=== PATIENT | female | born 1975 | race Caucasian/White ===

== ENCOUNTER 2022-04-05 21:25 | Inpatient (IN) | payer BC ==
[~2022-04-05] VITALS: Ht 162.6 cm; Wt 59.9 kg
--- NOTE | 2022-04-05 21:58 | NUR ---
PT SWABBED FOR COVID, SAMPLE SENT TO LAB
--- NOTE | 2022-04-05 22:54 | NUR ---
46 YR OLD FMALE RECENTLY DIAGNOSED WITH CANCER OF THE MARI, PT NOTED TO HAVE LARGE TENNIS BALL NODULE ON LEFT MID BACK WITH TENDERNESS TO TOUCH. PT STATED SHE HAS BACK PAIN 10/10 WITH NAUSEA AND VOMITING FOR ONE DAY. PT CONCERNED ABOUT PNUEMONIA. PENDING MD EVALUATION
[2022-04-05 23:16] VITALS: BP_SYST 119
[2022-04-06] MEDS ORDERED: MORPHINE 4 MG INJ. 4 MG/ML VIAL IVP ONE (00:15)
[2022-04-06 00:36] LABS: WHITE BLOOD COUNT (AUTO) 2.4 K/uL (4.8-10.8)
[2022-04-06 00:41] LABS: ANION GAP 9 (5-15); CHLORIDE 100 mmol/L (98-107); CREATININE 0.84 mg/dL (0.55-1.30); GLUCOSE 180 mg/dL (70-99); POTASSIUM 3.7 mmol/L (3.5-5.1); SODIUM SERUM 135 mmol/L (136-145); UREA NITROGEN, BLOOD 7 mg/dL (8-21)
[2022-04-06 00:48] LABS: HEMATOCRIT 26.6 % (36-48); HEMOGLOBIN 9.1 g/dL (12.0-16.0); MEAN CORPUSCULAR HEMOGLOBIN 30 pg (27-31); MEAN CORPUSCULAR HGB CONC 34 % (32-36); MEAN CORPUSCULAR VOLUME 87 fL (79.0-98.0); PLATELET COUNT (AUTO) 157 K/uL (130-430); RED BLOOD CELL COUNT(AUTO) 3.07 MIL/uL (4.2-6.2); RED CELL DISTRIBUTION WIDTH 18.5 % (9.0-15.0)
[2022-04-06 00:49] LABS: ALANINE AMINOTRANSFERASE 7 U/L (12-78); ALBUMIN 2.2 g/dL (3.4-4.8); ASPARTATE AMINOTRANSFERASE 21 U/L (10-37); TOTAL BILIRUBIN 0.8 mg/dL (0.0-1.0)
[2022-04-06 00:51] LABS: GFR AFRICAN AMERICAN 93 mL/min (>90)
[2022-04-06] MEDS ORDERED: IBUP-1971 PO (01:50)
--- NOTE | 2022-04-06 02:41 | NUR ---
Admit bed requested Patient will be admitted to care of . Admitted to unit. Diagnosis Inpatient (Yes or No) Observation (Yes or No) Orientation concerns or request close to nursing station (Yes or No) Covid Status On vent or bipap Isolation requirements Needs a sitter From Home (Yes or if No enter name of facility) Requires Dialysis (Yes or No) Med Rec Completed (Yes of No)
[2022-04-06] MEDS ORDERED: ACETAMINOPHEN 500 MG TABLET PO ONE (02:45)
[2022-04-06] MEDS ORDERED: IPRATROPIUM/ALBUTEROL SULFATE 3 ML AMPUL.NEB (DUONEB) INH ONE (02:45)
[2022-04-06] MEDS ORDERED: ONDANSETRON HCL 4 MG/2 ML VIAL IVP ONE (02:45)
[2022-04-06 02:59] LABS: ATYPICAL LYMPHOCYTES % 0 % (0-0); BAND % (MANUAL) 1 % (0-6); BASOPHILS % (MANUAL) 0 % (0-2); EOSINOPHILS % (MANUAL) 0 % (0-7); LYMPHOCYTES % (MANUAL) 62 % (20-46); MONOCYTES % (MANUAL) 14 % (0-11); MYELOCYTES % 1 % (0-0)
--- NOTE | 2022-04-06 04:18 | NUR ---
Note undone in EDM - 04/06/22 at 0420 by [id number] Patient given written and verbal discharge instructions and verbalizes understanding. ER MD discussed with patient the results and treatment provided. Patient in stable condition. ID arm band removed. IV catheter removed intact and dressing applied, no active bleeding. Rx of [] given. Patient educated on pain management and to follow up with PMD. Pain Scale []. Opportunity for questions provided and answered. Medication side effect fact sheet provided. Patient will be admitted to care of . Admitted to unit. Will go to room . Belongings list completed. Complete and up to date summary report printed. SBAR report to be given at bedside with opportunity for questions.
[2022-04-06 04:41] VITALS: BP_SYST 115
--- NOTE | 2022-04-06 05:20 | NUR ---
Consultation Paged Reason for Consultation: left pleural effusion Was consult called: Y Person who was notified: Dinora Consulting Physician: Sam Prasad Ordering Physician: Phan Linares
--- NOTE | 2022-04-06 06:23 | NUR ---
0430 Pt. to room from ER, aaox4, no acute distress. Oriented to room and made comfortable, call light in reach. Pt. to call her son to bring in her home meds and dentures. Assessment questions answered. 0600 Pt. needs met this shift, vss, call light in reach, resting quietly.
[2022-04-06 08:00] VITALS: BP_SYST 121
[2022-04-06 12:00] VITALS: BP_SYST 108
[2022-04-06] MEDS ORDERED: METF-518 PO (13:41)
[2022-04-06] MEDS ORDERED: PROC10TA13 PO (13:41)
[2022-04-06] MEDS ORDERED: GLIP10TA11 PO (13:41)
[2022-04-06] MEDS ORDERED: INSU100I26 SQ (13:41)
[2022-04-06] MEDS ORDERED: D5W 1,000 ML IV PRN (14:00)
[2022-04-06] MEDS ORDERED: INSULIN LISPRO SLIDING SCALE 100 UNITS/ML VIAL (humaLOG) SUBCUT PRN (14:00)
[2022-04-06] MEDS ORDERED: DEXTROSE 50% JECT 50 ML DISP.SYRIN IVP PRN (14:00)
[2022-04-06] MEDS ORDERED: GLUCOSE (DEXTROSE) ORAL GEL -Adults PO PRN (14:00)
--- NOTE | 2022-04-06 17:37 | NUR ---
Miss Wright is being DC to home at this time. She was offered a thoracentesis by the Waiter/[employer]ress [employer]. she declined stating the that procedure was too painful. She also informed her admitting physician as well as the message clerk that she has seen a message clerk as an outpatient recently she had a "scan" that was ordered by him. She also states that she had a recent PET scan and all of these results will be followed up with her oncologist at an appointment that she has this week. She has been having recurrent pleural effusions over the last seven years, since she has been diagnosed with melanoma. She also states that she has been informed of the possibility that cancer cells could be in the fluid of the pleural effusion. She states that she will be informed of he report from her last thoracentesis at her next oncology appointment. She stated that the pleural effusion that led to her ER visit and caused her great discomfort has decreased in the amount of discomfort it is causing at this time. She states that she feels comfortable with going home and will follow up with her oncologist this week.
[2022-04-06 17:50] VITALS: BP_SYST 108
--- NOTE | 2022-04-06 18:24 | NUR ---
Miss Wright has been DC to home. IV access has been removed. DC instructions have been reviewed. She expressed her understanding and signed a document to indicated this understanding. She expressed that she understood the need to attend her upcoming oncology appointment. At the time of DC she had no s/s of distress or discomfort. She was compliant with the plan to be DC at this time.
[2022-04-06] MEDS ORDERED: INSULIN GLARGINE 100 UNITS/ML 10 ML VIAL SUBCUT SCH (21:00)
== END 2022-04-06 18:24 | disposition home or self-care (01) | DRG 381 ==
LOC: SED 21:25 → SMU 04-06 02:35
PROVIDERS: ADMIT Family Medicine; ATTEND Family Medicine
DX: C43.9 Malignant melanoma of skin, unspecified (principal); J94.2 Hemothorax; E41 Nutritional marasmus; E43 Unspecified severe protein-calorie malnutrition; J91.0 Malignant pleural effusion; Z20.822 Contact with and (suspected) exposure to COVID-19; E11.9 Type 2 diabetes mellitus without complications; Z85.820 Personal history of malignant melanoma of skin
CPT/HCPCS: 36415; 71045; 80053; 83880; 84484; 85007; 85027; 85379; 96374; 99285; J1815; J2270

== ENCOUNTER 2022-05-05 17:28 | Emergency (ER) | payer BC ==
[~2022-05-05] VITALS: Ht 162.6 cm; Wt 54.4 kg
[~2022-05-05 17:28] MED LIST: GLIP10TA11 PO; IBUP-1971 PO; INSU100I26 SQ; METF-518 PO; PROC10TA13 PO
[2022-05-05 17:43] VITALS: BP_SYST 116
[2022-05-05] MEDS ORDERED: LIDOCAINE/EPI 1% 1:100000 20 ML VIAL INJ ONE ×2 (18:30→19:44)
--- NOTE | 2022-05-05 19:00 | NUR ---
Pt presents to the ER BIB family friend, Pt c/o pain to left middle lumbar 07/12. Pt states pustule filled sac has been there for some time unknown. Pt states pain started this morning. Skin intact, aaox4, Pt currently undergoing Cancer treatment for tumor.
[2022-05-05] MEDS ORDERED: BACITRACIN 1 GM OINT TP ONE (20:49)
--- NOTE | 2022-05-05 21:24 | NUR ---
PATIENT CONSENTED FOR CT SCAN WITH CONTRAST
--- NOTE | 2022-05-05 21:24 | NUR ---
# 20 gauge angiocath placed to LAC. Use of asceptic technique. Opsite placed over site. Blood return noted. Flushed with 10 cc of normal saline. No evidence of infiltration noted. Patient tolerated well.
[2022-05-05 21:31] LABS: MEAN CORPUSCULAR VOLUME 85 fL (79.0-98.0)
[2022-05-05 21:34] LABS: CREATININE 1.13 mg/dL (0.55-1.30); POTASSIUM 3.8 mmol/L (3.5-5.1)
[2022-05-05 21:37] LABS: BASOPHILS % (AUTO) 0.6 % (0.0-2.0); EOSINOPHILS # (AUTO) 0.2 K/uL (0.0-0.4); EOSINOPHILS % (AUTO) 4.1 % (0.0-4.0); HEMATOCRIT 26.8 % (36-48); HEMOGLOBIN 8.8 g/dL (12.0-16.0); LYMPHOCYTES # (AUTO) 1.4 K/uL (1.0-5.5); LYMPHOCYTES % (AUTO) 26.8 % (20.5-51.5); MEAN CORPUSCULAR HEMOGLOBIN 28 pg (27-31); MEAN CORPUSCULAR HGB CONC 33 % (32-36); MONOCYTES # (AUTO) 0.5 K/uL (0.0-1.0); MONOCYTES % (AUTO) 10.3 % (1.7-9.3); NEUTROPHILS % (AUTO) 58.2 % (40.0-70.0); PLATELET COUNT (AUTO) 277 K/uL (130-430); RED BLOOD CELL COUNT(AUTO) 3.16 MIL/uL (4.2-6.2); RED CELL DISTRIBUTION WIDTH 18.4 % (9.0-15.0); WHITE BLOOD COUNT (AUTO) 5.2 K/uL (4.8-10.8)
[2022-05-05 21:45] LABS: ALBUMIN 2.2 g/dL (3.4-4.8); TOTAL BILIRUBIN 0.3 mg/dL (0.0-1.0)
[2022-05-05 21:55] LABS: CALCIUM 8.6 mg/dL (8.4-11.0)
[2022-05-06] MEDS ORDERED: AUG875 PO (02:28)
[2022-05-06 03:23] VITALS: BP_SYST 138
--- NOTE | 2022-05-06 03:23 | NUR ---
Patient given written and verbal discharge instructions and verbalizes understanding. ER MD discussed with patient the results and treatment provided. Patient in stable condition. ID arm band removed. IV catheter removed intact and dressing applied, no active bleeding. Rx of Augmentin given. Patient educated on pain management and to follow up with PMD. Pain Scale 0/10. Opportunity for questions provided and answered.
== END 2022-05-06 03:23 | disposition home or self-care (01) ==
LOC: SED 17:28
DX: J90 Pleural effusion, not elsewhere classified (principal); R22.2 Localized swelling, mass and lump, trunk; E11.9 Type 2 diabetes mellitus without complications; Z79.899 Other long term (current) drug therapy
CPT/HCPCS: 99285; 71260; 10060; 80053; 84702; 85025; 36415; 74160; 76376; Q9967

== ENCOUNTER 2022-11-09 10:51 | Inpatient (IN) | payer BC ==
[~2022-11-09] VITALS: Ht 167.6 cm; Wt 59.0 kg
[2022-11-09 10:51] VITALS: BP_SYST 112
[~2022-11-09 10:51] MED LIST changes: +AUG875 PO; +SULF1TAB48 PO
[2022-11-09] MEDS ORDERED: NS 1000 ML IV.SOLN IV ONE (11:00)
[2022-11-09] MEDS ORDERED: cefTRIAXone 2 GM VIAL ONE (11:10)
[2022-11-09] MEDS ORDERED: MORPHINE 4 MG INJ. 4 MG/ML VIAL IVP ONE (11:15)
[2022-11-09] MEDS ORDERED: LIDOCAINE MPF 1% 50 MG/5 ML AMP INJ ONE (11:30)
[2022-11-09 11:31] LABS: BASOPHILS # (AUTO) 0.2 K/uL (0.0-0.2); EOSINOPHILS # (AUTO) 0.4 K/uL (0.0-0.4); EOSINOPHILS % (AUTO) 2.6 % (0.0-4.0); HEMATOCRIT 28.1 % (36-48); HEMOGLOBIN 8.5 g/dL (12.0-16.0); LYMPHOCYTES # (AUTO) 3.4 K/uL (1.0-5.5); MEAN CORPUSCULAR HEMOGLOBIN 23 pg (27-31); MEAN CORPUSCULAR HGB CONC 30 % (32-36); MEAN CORPUSCULAR VOLUME 77 fL (79.0-98.0); MONOCYTES # (AUTO) 0.6 K/uL (0.0-1.0); MONOCYTES % (AUTO) 3.3 % (1.7-9.3); NEUTROPHILS # (AUTO) 12.4 K/uL (1.8-7.7); NEUTROPHILS % (AUTO) 73.1 % (40.0-70.0); PLATELET COUNT (AUTO) 175 K/uL (130-430); RED BLOOD CELL COUNT(AUTO) 3.65 MIL/uL (4.2-6.2)
[2022-11-09 11:38] LABS: ANION GAP 16 (5-15); CALCIUM 9.7 mg/dL (8.4-11.0); CHLORIDE 109 mmol/L (98-107); GLUCOSE 131 mg/dL (70-99); UREA NITROGEN, BLOOD 17 mg/dL (8-21)
[2022-11-09 11:41] LABS: GFR AFRICAN AMERICAN 56 mL/min (>90)
[2022-11-09 11:43] LABS: BILIRUBIN,URINE NEGATIVE (NEGATIVE); BLOOD, URINE 1+ (NEGATIVE); CLARITY/URINE CLOUDY (CLEAR); COLOR,URINE YELLOW (YELLOW); GLUCOSE,URINE NEGATIVE (NEGATIVE); KETONES,URINE 1+ (NEGATIVE); LEUKOCYTE ESTERASE ,URINE 3+ (NEGATIVE); NITRITE, URINE POSITIVE (NEGATIVE); PROTEIN URINE 1+ (NEGATIVE); UROBILINOGEN,URINE 0.2 (0.2-1.0)
[2022-11-09 11:47] LABS: ACETAMINOPHEN < 1 ug/mL (1-30); ALANINE AMINOTRANSFERASE 15 U/L (12-78); ALCOHOL, BLOOD < 3 mg/dL (<10); ASPARTATE AMINOTRANSFERASE 28 U/L (10-37); TOTAL BILIRUBIN 0.6 mg/dL (0.0-1.0)
[2022-11-09 11:52] LABS: BACTERIA,URINE MODERATE /HPF (None Seen); MUCUS,URINE None Seen /LPF (None Seen); RBC,URINE 0-3 /HPF (0-3); WBC,URINE 20-50 /HPF (0-3)
[2022-11-09 11:54] LABS: BARBITURATE, URINE NEGATIVE (NEG <=200); BENZODIAZEPINE, URINE NEGATIVE (NEG <=150); CANNABINOID, URINE NEGATIVE (NEG <=50); COCAINE, URINE NEGATIVE (NEG <=150); METHAMPHETAMINES SCREEN,URINE NEGATIVE (NEG <=500); OPIATE, URINE POSITIVE (NEG <=100); PHENCYCLIDINE SCREEN,URINE NEGATIVE (NEG <=25); UR TRICYCLIC ANTIDEPRESSANTS NEGATIVE (NEG <=300); URINE AMPHETAMINE NEGATIVE (NEG <=500); URINE METHADONE NEGATIVE (NEG <=200); URINE OXYCODONE SCREEN NEGATIVE (NEG <=100); URINE PROPOXYPHENE SCREEN NEGATIVE (NEG <=300)
[2022-11-09] MEDS ORDERED: SULF1TAB47 PO (12:45)
[2022-11-09] MEDS ORDERED: IBUP-1970 PO (12:45)
[2022-11-09] MEDS ORDERED: [UNRECOGNIZED DRUG - CODE] PO (12:45)
[2022-11-09] MEDS ORDERED: D5/0.45 NS 1,000 ML IV ONE (14:45)
[2022-11-09 17:06] VITALS: BP_SYST 134
[2022-11-09 19:03] VITALS: BP_SYST 135
[2022-11-09] MEDS ORDERED: PROCHLORPERAZINE MALEATE 10 MG TABLET PO PRN (21:15)
[2022-11-09] MEDS ORDERED: D5W 1,000 ML IV PRN (22:15)
[2022-11-09] MEDS ORDERED: GLUCOSE (DEXTROSE) ORAL GEL -Adults PO PRN (22:15)
[2022-11-09] MEDS ORDERED: DEXTROSE 50% JECT 50 ML DISP.SYRIN IVP PRN (22:15)
[2022-11-09] MEDS ORDERED: LORazepam 2 MG/ML VIAL IVP PRN (22:15)
[2022-11-09] MEDS: ALBUTEROL SULFATE 0.083% 2.5 MG/3 ML VIAL.NEB INH SCH (23:22)
[2022-11-09] MEDS: IPRATROPIUM BROM 0.5 MG/2.5 ML VIAL.NEB (ATROVENT) INH SCH (23:22)
[2022-11-10] VITALS (9 sets, daily range): BP systolic 84–141
[2022-11-10] MEDS ORDERED: traZODone HCL 50 MG TABLET (DESYREL) PO PRN (01:00)
[2022-11-10] MEDS: IBUPROFEN 800 MG TABLET PO PRN ×4 (01:01→22:38)
[2022-11-10] MEDS: IPRATROPIUM BROM 0.5 MG/2.5 ML VIAL.NEB (ATROVENT) INH SCH ×6 (03:14→23:23)
[2022-11-10] MEDS: ALBUTEROL SULFATE 0.083% 2.5 MG/3 ML VIAL.NEB INH SCH ×6 (03:14→23:23)
[2022-11-10] MEDS ORDERED: NORMAL SALINE 5 ML DISP.SYRIN IVF SCH (06:00)
[2022-11-10] MEDS: NORMAL SALINE 5 ML DISP.SYRIN IVF SCH ×3 (06:00→20:48)
[2022-11-10 07:31] LABS: BASOPHILS % (AUTO) 0.4 % (0.0-2.0); EOSINOPHILS # (AUTO) 0.5 K/uL (0.0-0.4); EOSINOPHILS % (AUTO) 4.3 % (0.0-4.0); LYMPHOCYTES # (AUTO) 3.1 K/uL (1.0-5.5); LYMPHOCYTES % (AUTO) 25.7 % (20.5-51.5); MEAN CORPUSCULAR HEMOGLOBIN 23 pg (27-31); MEAN CORPUSCULAR HGB CONC 31 % (32-36); MEAN CORPUSCULAR VOLUME 76 fL (79.0-98.0); MONOCYTES # (AUTO) 0.7 K/uL (0.0-1.0); MONOCYTES % (AUTO) 5.6 % (1.7-9.3); NEUTROPHILS # (AUTO) 7.8 K/uL (1.8-7.7); PLATELET COUNT (AUTO) 123 K/uL (130-430); RED BLOOD CELL COUNT(AUTO) 2.75 MIL/uL (4.2-6.2); RED CELL DISTRIBUTION WIDTH 19.6 % (9.0-15.0); WHITE BLOOD COUNT (AUTO) 12.1 K/uL (4.8-10.8)
[2022-11-10] MEDS ORDERED: D5W 1,000 ML IV PRN (07:45)
[2022-11-10] MEDS ORDERED: INSULIN REGULAR, HUMAN 100 UNITS/ML, 3 ML VIAL (humuLIN R) SUBCUT PRN (07:45)
[2022-11-10] MEDS ORDERED: DEXTROSE 50%-WATER 50 ML DISP.SYRIN IVP PRN (07:45)
[2022-11-10] MEDS ORDERED: GLUCOSE (DEXTROSE) ORAL GEL -Adults PO PRN (07:45)
[2022-11-10 08:40] LABS: ALBUMIN 1.5 g/dL (3.4-4.8); CALCIUM 8.4 mg/dL (8.4-11.0); CREATININE 1.13 mg/dL (0.55-1.30); PHOSPHORUS 3.3 mg/dL (2.7-4.5); TOTAL BILIRUBIN 0.4 mg/dL (0.0-1.0)
[2022-11-10] MEDS: INSULIN GLARGINE 100 UNITS/ML, 10 ML VIAL SUBCUT SCH ×2 (09:00→20:46)
[2022-11-10] MEDS ORDERED: SULFAMETHOXAZOLE/TRIMETHOPR DS 1 TABLET PO SCH (09:00)
[2022-11-10] MEDS ORDERED: cefTRIAXone 1 GM IVPB PREMIX 50 ML IV SCH (09:00)
[2022-11-10] MEDS ORDERED: AMOXICILLIN/POTASSIUM CLAV 875 MG TABLET PO SCH (09:00)
[2022-11-10 09:21] LABS: HEMATOCRIT 20.8 % (36-48); HEMOGLOBIN 6.4 g/dL (12.0-16.0)
[2022-11-10] MEDS ORDERED: DIPHENHYDRAMINE INJ 50 MG/ML VIAL IVP ONE (15:00)
[2022-11-10] MEDS: NACL 0.9% 1,000 ML IV SCH (15:15)
[2022-11-10] MEDS ORDERED: PANTOPRAZOLE SODIUM 40 MG/VIAL (PROTONIX) IVP ONE (16:00)
[2022-11-10] MEDS: VANCOMYCIN HCL 750 MG in NS 250 ML IV SCH (20:39)
[2022-11-10] MEDS: CEFEPIME 2 GM in D5W 100 ML IV SCH (20:40)
[2022-11-11] VITALS (10 sets, daily range): BP systolic 104–125
[2022-11-11] MEDS: NACL 0.9% 1,000 ML IV SCH ×3 (01:15→21:40)
[2022-11-11] MEDS: IBUPROFEN 800 MG TABLET PO PRN ×2 (01:15→10:33)
[2022-11-11] MEDS: ALBUTEROL SULFATE 0.083% 2.5 MG/3 ML VIAL.NEB INH SCH ×6 (03:00→23:02)
[2022-11-11] MEDS: IPRATROPIUM BROM 0.5 MG/2.5 ML VIAL.NEB (ATROVENT) INH SCH ×6 (03:00→23:03)
[2022-11-11] MEDS: NORMAL SALINE 5 ML DISP.SYRIN IVF SCH ×3 (06:25→21:40)
[2022-11-11 07:00] LABS: BASOPHILS # (AUTO) 0.1 K/uL (0.0-0.2); EOSINOPHILS # (AUTO) 0.6 K/uL (0.0-0.4); HEMATOCRIT 25.5 % (36-48); HEMOGLOBIN 8.1 g/dL (12.0-16.0); LYMPHOCYTES # (AUTO) 1.9 K/uL (1.0-5.5); LYMPHOCYTES % (AUTO) 16.8 % (20.5-51.5); MEAN CORPUSCULAR HEMOGLOBIN 25 pg (27-31); MEAN CORPUSCULAR HGB CONC 32 % (32-36); MEAN CORPUSCULAR VOLUME 78 fL (79.0-98.0); MONOCYTES # (AUTO) 0.7 K/uL (0.0-1.0); MONOCYTES % (AUTO) 6.2 % (1.7-9.3); PLATELET COUNT (AUTO) 108 K/uL (130-430); RED BLOOD CELL COUNT(AUTO) 3.28 MIL/uL (4.2-6.2); RED CELL DISTRIBUTION WIDTH 19.7 % (9.0-15.0); WHITE BLOOD COUNT (AUTO) 11.2 K/uL (4.8-10.8)
[2022-11-11 07:07] LABS: C-REACTIVE PROTEIN QUANT 12.8 mg/dL (0-0.5); CALCIUM 8.4 mg/dL (8.4-11.0); CREATININE 0.88 mg/dL (0.55-1.30)
[2022-11-11] MEDS: PANTOPRAZOLE SODIUM 40 MG/VIAL (PROTONIX) IVP SCH (08:17)
[2022-11-11] MEDS: VANCOMYCIN HCL 750 MG in NS 250 ML IV SCH ×2 (08:18→21:16)
[2022-11-11] MEDS: INSULIN GLARGINE 100 UNITS/ML, 10 ML VIAL SUBCUT SCH ×2 (09:00→21:43)
[2022-11-11] MEDS: CEFEPIME 2 GM in D5W 100 ML IV SCH ×2 (09:48→21:39)
[2022-11-11 10:33] LABS: ERYTHROCYTE SEDIMENTATION RATE 59 MM/HR (0-20)
[2022-11-11 10:41] LABS: INR 1.3 (0.8-1.2); PROTHROMBIN TIME 12.5 SECS (9.5-12.5)
[2022-11-11] MEDS ORDERED: HONEY WOUND DRESSING 1 EACH TP PRN (15:45)
[2022-11-11] MEDS ORDERED: HONEY WOUND DRESSING 1 EACH TP ONE (16:00)
[2022-11-11] MEDS: HYDROcodone/ACETAMIN 5-325 MG TAB (NORCO/ VICODIN) PO PRN (17:16)
[2022-11-12] VITALS: BP_SYST 117
[2022-11-12] MEDS: IBUPROFEN 800 MG TABLET PO PRN ×2 (02:37→22:30)
[2022-11-12] MEDS: ALBUTEROL SULFATE 0.083% 2.5 MG/3 ML VIAL.NEB INH SCH ×6 (03:08→23:14)
[2022-11-12] MEDS: IPRATROPIUM BROM 0.5 MG/2.5 ML VIAL.NEB (ATROVENT) INH SCH ×6 (03:09→23:14)
[2022-11-12 04:00] VITALS: BP_SYST 120
[2022-11-12] MEDS: NORMAL SALINE 5 ML DISP.SYRIN IVF SCH ×3 (05:45→22:37)
[2022-11-12 06:45] LABS: BASOPHILS # (AUTO) 0.1 K/uL (0.0-0.2); EOSINOPHILS # (AUTO) 0.4 K/uL (0.0-0.4); EOSINOPHILS % (AUTO) 3.9 % (0.0-4.0); HEMATOCRIT 23.9 % (36-48); HEMOGLOBIN 7.8 g/dL (12.0-16.0); LYMPHOCYTES # (AUTO) 2.9 K/uL (1.0-5.5); LYMPHOCYTES % (AUTO) 26.1 % (20.5-51.5); MEAN CORPUSCULAR HEMOGLOBIN 26 pg (27-31); MEAN CORPUSCULAR HGB CONC 33 % (32-36); MEAN CORPUSCULAR VOLUME 78 fL (79.0-98.0); NEUTROPHILS # (AUTO) 6.6 K/uL (1.8-7.7); PLATELET COUNT (AUTO) 107 K/uL (130-430); RED BLOOD CELL COUNT(AUTO) 3.08 MIL/uL (4.2-6.2)
[2022-11-12 06:55] LABS: C-REACTIVE PROTEIN QUANT 11.4 mg/dL (0-0.5); CALCIUM 7.8 mg/dL (8.4-11.0); CREATININE 0.79 mg/dL (0.55-1.30)
[2022-11-12 08:31] VITALS: BP_SYST 108
[2022-11-12 08:31] LABS: ERYTHROCYTE SEDIMENTATION RATE 33 MM/HR (0-20)
[2022-11-12] MEDS: PANTOPRAZOLE SODIUM 40 MG/VIAL (PROTONIX) IVP SCH (08:35)
[2022-11-12] MEDS: HYDROcodone/ACETAMIN 5-325 MG TAB (NORCO/ VICODIN) PO PRN ×3 (08:36→20:24)
[2022-11-12] MEDS: NACL 0.9% 1,000 ML IV SCH ×2 (08:50→17:43)
[2022-11-12] MEDS: VANCOMYCIN HCL 750 MG in NS 250 ML IV SCH ×2 (08:52→20:24)
[2022-11-12] MEDS: CEFEPIME 2 GM in D5W 100 ML IV SCH ×2 (08:53→22:37)
[2022-11-12] MEDS: INSULIN GLARGINE 100 UNITS/ML, 10 ML VIAL SUBCUT SCH (09:06)
[2022-11-12] MEDS: HONEY WOUND DRESSING 1 EACH TP SCH (09:07)
[2022-11-12] MEDS ORDERED: POTASSIUM CHLORIDE 20 MEQ TAB.PRT.SR PO ONE (10:00)
[2022-11-12 12:05] VITALS: BP_SYST 122
[2022-11-12 16:24] VITALS: BP_SYST 135
[2022-11-13 00:15] VITALS: BP_SYST 130
[2022-11-13] MEDS: HYDROcodone/ACETAMIN 5-325 MG TAB (NORCO/ VICODIN) PO PRN ×3 (02:05→15:34)
[2022-11-13] MEDS: NACL 0.9% 1,000 ML IV SCH ×3 (03:15→23:15)
[2022-11-13] MEDS: ALBUTEROL SULFATE 0.083% 2.5 MG/3 ML VIAL.NEB INH SCH ×6 (03:54→23:00)
[2022-11-13] MEDS: IPRATROPIUM BROM 0.5 MG/2.5 ML VIAL.NEB (ATROVENT) INH SCH ×6 (03:54→23:00)
[2022-11-13] MEDS: IBUPROFEN 800 MG TABLET PO PRN (04:56)
[2022-11-13] MEDS: NORMAL SALINE 5 ML DISP.SYRIN IVF SCH ×3 (06:16→22:00)
[2022-11-13 07:06] LABS: BASOPHILS # (AUTO) 0.1 K/uL (0.0-0.2); BASOPHILS % (AUTO) 0.5 % (0.0-2.0); EOSINOPHILS # (AUTO) 0.3 K/uL (0.0-0.4); EOSINOPHILS % (AUTO) 3.1 % (0.0-4.0); HEMATOCRIT 25.5 % (36-48); HEMOGLOBIN 8.2 g/dL (12.0-16.0); LYMPHOCYTES # (AUTO) 3.4 K/uL (1.0-5.5); LYMPHOCYTES % (AUTO) 30.3 % (20.5-51.5); MEAN CORPUSCULAR HEMOGLOBIN 25 pg (27-31); MEAN CORPUSCULAR HGB CONC 32 % (32-36); MEAN CORPUSCULAR VOLUME 78 fL (79.0-98.0); MONOCYTES # (AUTO) 0.9 K/uL (0.0-1.0); NEUTROPHILS # (AUTO) 6.5 K/uL (1.8-7.7); NEUTROPHILS % (AUTO) 58.1 % (40.0-70.0); PLATELET COUNT (AUTO) 124 K/uL (130-430); RED BLOOD CELL COUNT(AUTO) 3.27 MIL/uL (4.2-6.2); RED CELL DISTRIBUTION WIDTH 20.2 % (9.0-15.0); WHITE BLOOD COUNT (AUTO) 11.2 K/uL (4.8-10.8)
[2022-11-13 07:31] LABS: C-REACTIVE PROTEIN QUANT 8.6 mg/dL (0-0.5); CREATININE 0.68 mg/dL (0.55-1.30)
[2022-11-13 07:51] LABS: ERYTHROCYTE SEDIMENTATION RATE 32 MM/HR (0-20)
[2022-11-13 08:25] VITALS: BP_SYST 140
[2022-11-13] MEDS: INSULIN GLARGINE 100 UNITS/ML, 10 ML VIAL SUBCUT SCH (09:00)
[2022-11-13] MEDS: VANCOMYCIN HCL 750 MG in NS 250 ML IV SCH (09:26)
[2022-11-13] MEDS: CEFEPIME 2 GM in D5W 100 ML IV SCH (09:27)
[2022-11-13] MEDS: PANTOPRAZOLE SODIUM 40 MG/VIAL (PROTONIX) IVP SCH (09:28)
[2022-11-13] MEDS: HONEY WOUND DRESSING 1 EACH TP SCH (09:29)
[2022-11-13 12:30] VITALS: BP_SYST 124
[2022-11-13 17:00] VITALS: BP_SYST 133
[2022-11-13 20:00] VITALS: BP_SYST 146
[2022-11-14] VITALS: BP_SYST 139
[2022-11-14] MEDS: HYDROcodone/ACETAMIN 5-325 MG TAB (NORCO/ VICODIN) PO PRN ×4 (01:08→18:15)
[2022-11-14] MEDS: IPRATROPIUM BROM 0.5 MG/2.5 ML VIAL.NEB (ATROVENT) INH SCH ×4 (03:00→15:42)
[2022-11-14] MEDS: ALBUTEROL SULFATE 0.083% 2.5 MG/3 ML VIAL.NEB INH SCH ×4 (03:00→15:42)
[2022-11-14] MEDS: NORMAL SALINE 5 ML DISP.SYRIN IVF SCH ×2 (06:29→14:00)
[2022-11-14] MEDS: NACL 0.9% 1,000 ML IV SCH (06:29)
[2022-11-14 07:11] LABS: BASOPHILS # (AUTO) 0.1 K/uL (0.0-0.2); BASOPHILS % (AUTO) 0.7 % (0.0-2.0); EOSINOPHILS # (AUTO) 0.3 K/uL (0.0-0.4); EOSINOPHILS % (AUTO) 2.7 % (0.0-4.0); HEMATOCRIT 25.2 % (36-48); LYMPHOCYTES # (AUTO) 3.1 K/uL (1.0-5.5); LYMPHOCYTES % (AUTO) 25.8 % (20.5-51.5); MEAN CORPUSCULAR HEMOGLOBIN 25 pg (27-31); MEAN CORPUSCULAR HGB CONC 32 % (32-36); MEAN CORPUSCULAR VOLUME 79 fL (79.0-98.0); MONOCYTES # (AUTO) 0.8 K/uL (0.0-1.0); MONOCYTES % (AUTO) 6.8 % (1.7-9.3); NEUTROPHILS # (AUTO) 7.7 K/uL (1.8-7.7); PLATELET COUNT (AUTO) 141 K/uL (130-430); RED BLOOD CELL COUNT(AUTO) 3.19 MIL/uL (4.2-6.2); RED CELL DISTRIBUTION WIDTH 20.4 % (9.0-15.0); RETICULOCYTE COUNT 2.7 % (0.5-1.5)
[2022-11-14 07:24] LABS: TOTAL IRON BIND. CAPACITY 109 ug/dL (250-450)
[2022-11-14 07:33] LABS: ALBUMIN 1.6 g/dL (3.4-4.8); C-REACTIVE PROTEIN QUANT 7.9 mg/dL (0-0.5); CALCIUM 8.2 mg/dL (8.4-11.0); CREATININE 0.62 mg/dL (0.55-1.30); TOTAL BILIRUBIN 0.7 mg/dL (0.0-1.0)
[2022-11-14 08:18] VITALS: BP_SYST 138
[2022-11-14] MEDS: INSULIN GLARGINE 100 UNITS/ML, 10 ML VIAL SUBCUT SCH (09:00)
[2022-11-14] MEDS: PANTOPRAZOLE SODIUM 40 MG/VIAL (PROTONIX) IVP SCH (09:28)
[2022-11-14 10:20] LABS: ERYTHROCYTE SEDIMENTATION RATE 34 MM/HR (0-20)
[2022-11-14] MEDS ORDERED: METF-380 PO (11:04)
[2022-11-14] MEDS ORDERED: INSU100I26 SQ (11:04)
[2022-11-14] MEDS ORDERED: LEVO750T64 PO (11:04)
[2022-11-14] MEDS ORDERED: TRAZ-250 PO (11:04)
[2022-11-14 11:33] VITALS: BP_SYST 141
[2022-11-14] MEDS ORDERED: NORMAL SALINE 5 ML DISP.SYRIN IVF SCH (14:00)
[2022-11-14 16:23] VITALS: BP_SYST 127
[2022-11-14 18:03] VITALS: BP_SYST 127
[2022-11-14] MEDS: HONEY WOUND DRESSING 1 EACH TP SCH (18:15)
[2022-11-15 11:06] LABS: FOLATE (FOLIC ACID) 3.8 ng/mL (>3.0)
== END 2022-11-14 19:40 | disposition home health service (06) | DRG 720 ==
LOC: SED 10:51 → STU 14:37
PROVIDERS: ADMIT Preventive Medicine Preventive Medicine/Occupational Environmental Medicine; ATTEND Preventive Medicine Preventive Medicine/Occupational Environmental Medicine
PROC: 0W9F3ZZ Drainage of Abdominal Wall, Percutaneous Approach (ICD-10-PCS; principal; 2022-11-09)
PROC: 30233N1 Transfusion of Nonautologous Red Blood Cells into Peripheral Vein, Percutaneous Approach (ICD-10-PCS; 2022-11-10)
PROC: 4A00X4Z Measurement of Central Nervous Electrical Activity, External Approach (ICD-10-PCS; 2022-11-10)
PROC: 0W9B3ZZ Drainage of Left Pleural Cavity, Percutaneous Approach (ICD-10-PCS; 2022-11-11)
PROC: 05HY33Z Insertion of Infusion Device into Upper Vein, Percutaneous Approach (ICD-10-PCS; 2022-11-13)
PROC: B54NZZA Ultrasonography of Left Upper Extremity Veins, Guidance (ICD-10-PCS; 2022-11-13)
DX: A41.9 Sepsis, unspecified organism (principal); J96.01 Acute respiratory failure with hypoxia; G93.41 Metabolic encephalopathy; E43 Unspecified severe protein-calorie malnutrition; C78.02 Secondary malignant neoplasm of left lung; C79.2 Secondary malignant neoplasm of skin; E87.20 Acidosis, unspecified; D69.6 Thrombocytopenia, unspecified; E83.51 Hypocalcemia; C79.51 Secondary malignant neoplasm of bone; E87.1 Hypo-osmolality and hyponatremia; J18.9 Pneumonia, unspecified organism; J90 Pleural effusion, not elsewhere classified; E88.09 Other disorders of plasma-protein metabolism, not elsewhere classified; D64.9 Anemia, unspecified; C53.9 Malignant neoplasm of cervix uteri, unspecified; E11.65 Type 2 diabetes mellitus with hyperglycemia; L02.91 Cutaneous abscess, unspecified; E83.52 Hypercalcemia; Z20.822 Contact with and (suspected) exposure to COVID-19; E87.6 Hypokalemia; I10 Essential (primary) hypertension; L03.90 Cellulitis, unspecified; B96.20 Unspecified Escherichia coli [E. coli] as the cause of diseases classified elsewhere; N39.0 Urinary tract infection, site not specified; Z90.710 Acquired absence of both cervix and uterus
CPT/HCPCS: 32555; 36415; 70450-TC; 71045; 71250-TC; 76376; 80048; 80053; 80202; 80307; 81000; 82042; 82140; 82607; 82728; 82746; 83540; 83550; 83605; 83735; 84100; 84157; 84484; 85025; 85044; 85610-TC; 85651-TC; 85730-TC; 86140; 86886; 86900; 86901; 86920; 87040; 87086; 93005; 94640; 94760; 95816; 96361; 96365; 96375; 97110-GP; 97116-GP; 97530-GP; 99291; C1751; C9113; G0378; G0480; G0481; G0482; J0692; J0696; J1200; J1815; J1956; J2001; J2060; J2270; J7030; J7050; J7060; J7613; P9021; Q0164